=== PATIENT | male | born 1985 | race Caucasian/White ===

== ENCOUNTER 2021-02-24 04:46 | Outpatient (CLI) | payer MEDICAID | END 2021-02-24 04:47 | disposition critical access hospital (66) | LOC: EMS 04:46 | DX: R07.89 Other chest pain (principal); R45.1 Restlessness and agitation | CPT/HCPCS: A0425; A0429; A0999 ==

== ENCOUNTER 2021-02-24 05:13 | Emergency (ER) | payer MEDICAID ==
[2021-02-24] MEDS ORDERED: THIAMINE 100 MG/1 ML 2 ML MDV ONE (05:38)
[2021-02-24] MEDS ORDERED: MAGNESIUM SULFATE 1 GM/2 ML VIAL ONE (05:38)
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
[2021-02-24] MEDS: DEXAMETHASONE 10 MG/ML VIAL IVP STA (05:44)
[2021-02-24] MEDS: KETOROLAC 30 MG/ML VIAL IVP STA (05:46)
[2021-02-24] MEDS: FOLIC ACID INJ 1 MG, THIAMINE INJ 100 MG, MAGNESIUM SULFATE 2 GM, MULTIVITAMIN 10 ML in... IV STA ×5 (05:48)
[2021-02-24 05:50] LABS: BASOPHILS # (AUTO) 0.1 10^3/uL (0.0-0.1); BASOPHILS % (AUTO) 0.8 %; EOSINOPHILS # (AUTO) 0.4 10^3/uL (0.0-0.7); HCT - HEMATOCRIT 42.5 % (42.0-52.0); HGB - HEMOGLOBIN 14.4 g/dL (14.0-18.0); LYMPHOCYTES # (AUTO) 2.6 10^3/uL (1.5-3.5); LYMPHOCYTES % (AUTO) 34.5 %; MEAN CORPUSCULAR HEMOGLOBIN 30.5 pg (27.0-31.0); MEAN CORPUSCULAR HGB CONC 33.9 g/dL (32.0-36.0); MONOCYTES # (AUTO) 0.6 10^3/uL (0.0-1.0); MONOCYTES % (AUTO) 7.2 %; NEUTROPHILS % (AUTO) 52.2 %; PLT - PLATELET COUNT 299 10^3/uL (130-450); RED BLOOD COUNT 4.72 10^6/uL (4.70-6.10); RED CELL DISTRIBUTION WIDTH 12.4 % (12.0-15.0); WHITE BLOOD COUNT 7.6 x10^3/uL (4.8-10.8)
[2021-02-24 06:20] LABS: ALBUMIN 3.8 g/dL (3.2-5.5); ALBUMIN/GLOBULIN RATIO 1.2 (1.0-2.2); BILIRUBIN,TOTAL 0.8 mg/dL (0.2-1.0); CALCIUM 8.2 mg/dL (8.5-10.3); CREATININE 0.9 mg/dL (0.6-1.2); POTASSIUM 3.5 mmol/L (3.5-5.0); TOTAL PROTEIN 7.1 g/dL (6.7-8.2)
[2021-02-24] MEDS: SODIUM CHLORIDE 0.9% 1,000 ML IV STA ×2 (07:51→10:32)
[2021-02-24] MEDS: LORazepam 2 MG/ML VIAL IVP STA ×2 (09:33→15:17)
--- NOTE | 2021-02-24 10:05 | XRAY Report ---
PROCEDURE: Chest 1 View X-Ray INDICATIONS: chest pain TECHNIQUE: One view of the chest was acquired. COMPARISON: None FINDINGS: Surgical changes and devices: None. Lungs and pleura: No pleural effusions or pneumothorax. Lungs are clear. Low lung volumes accentua te pulmonary interstitium and heart size. Minimal right basilar atelectasis. Mediastinum: Mediastinal contours appear normal. Heart size is normal. Bones and chest wall: No suspicious bony lesions. Overlying soft tissues appear unremarkable. IMPRESSION: Right basilar atelectasis accentuated by low lung volumes. No acute cardiopulmonary findings Note: Final report is concordant with preliminary report provided by Thryve Reviewed by: Vincent Quezada MD on 02/24/2021 9:04 AM IAN Approved by: Vincent Quezada MD on 02/24/2021 9:04 AM IAN Station ID: [id number]
[2021-02-24] MEDS: PHENobarbital 65 MG/ML VIAL IV STA (10:34)
[2021-02-24 12:32] LABS: BILIRUBIN,URINE NEGATIVE (NEGATIVE); GLUCOSE, URINE (UA) NEGATIVE (NEGATIVE); KETONES,URINE (UA) NEGATIVE (NEGATIVE); LEUKOCYTE ESTERASE, URINE NEGATIVE (NEGATIVE); NITRITE,URINE NEGATIVE (NEGATIVE); OCCULT BLOOD,URINE NEGATIVE (NEGATIVE); PROTEIN,URINE NEGATIVE (NEGATIVE); UROBILINOGEN,URINE 0.2 (NORMAL) E.U./dL (NORMAL)
[2021-02-24 12:38] LABS: CLARITY,URINE CLEAR (CLEAR)
[2021-02-24] MEDS: ONDANSETRON 4 MG/2 ML VIAL IVP STA (15:17)
[2021-02-24] MEDS: MAG HYDROX/AL HYDROX/SIMETH 30 ML UDC PO STA (15:17)
[2021-02-24] MEDS: MORPHINE 2 MG/ML CARPUJECT IVP STA (15:17)
[2021-02-24 15:18] VITALS: BP 179/116
--- NOTE | 2021-02-24 15:40 | ED Physician Documentation ---
ED Addendum - Addendum Addendum: 02/24/21 15:39 The patient did become more alert and oriented through the morning. He started to actually have some shakiness and nausea which he states consistent with withdrawal from alcohol. He states he been sober for 5 or 6 months. He resumed drinking this past week when he came back to [facility]. He states of been several days of heavy binge drinking. He is concerned about withdrawal. He also 1 point was saying he would be interested in detox. Social work met with him and was looking into detox at [facility]. However the patient then stated he had too much stuff to be doing and preferred not to be going to detox. He was still having some shakiness. I gave repeat doses of medication here in the IV in the ER. I prescribed for him medication to help with withdrawal. He is discharged in stable condition.
[2021-02-24 16:19] LABS: CORONAVIRUS 229E-RESP PCR NOT DETECTED
[2021-02-24 16:20] LABS: B. PARAPERTUSSIS- RESP PCR PAN NOT DETECTED; B. PERTUSSIS- RESP PCR PANEL NOT DETECTED; C. PNEUMONIAE- RESP PCR PANEL NOT DETECTED; CORONAVIRUS HKU1-RESP PCR NOT DETECTED; CORONAVIRUS NL63-RESP PCR NOT DETECTED; CORONAVIRUS OC43-RESP PCR NOT DETECTED; HUMAN METAPNEUMOVIRUS NOT DETECTED; INFLUENZA A- RESP PCR PANEL NOT DETECTED; INFLUENZA B - RESP PCR PANEL NOT DETECTED; M. PNEUMONIAE- RESP PCR PANEL NOT DETECTED; PARAINFLUENZA VIRUS 1 NOT DETECTED; PARAINFLUENZA VIRUS 2 NOT DETECTED; PARAINFLUENZA VIRUS 3 NOT DETECTED; PARAINFLUENZA VIRUS 4 NOT DETECTED; RHINOVIRUS/ENTEROVIRUS NOT DETECTED; RSV- RESP PCR PANEL NOT DETECTED; SARS-CoV-2 -RESP PCR PANEL NOT DETECTED
== END 2021-02-24 16:05 | disposition home or self-care (01) ==
LOC: ED 05:13
DX: M94.0 Chondrocostal junction syndrome [Tietze] (principal); Q67.6 Pectus excavatum; R94.31 Abnormal electrocardiogram [ECG] [EKG]; F10.939 Alcohol use, unspecified with withdrawal, unspecified; Y90.8 Blood alcohol level of 240 mg/100 ml or more; I10 Essential (primary) hypertension; Z20.822 Contact with and (suspected) exposure to COVID-19
CPT/HCPCS: 0202U; 36415; 71045; 80053; 80320; 81003; 83690; 84484; 85025; 93005; 96365; 96366; 96375; 96376; 99284; A9270; J2060; J3411; 81001; 87086

== ENCOUNTER 2021-02-26 06:40 | Emergency (ER) | payer MEDICAID ==
--- NOTE | 2021-02-26 07:22 | ED Physician Documentation ---
PD HPI ABD PAIN - Stated complaint Stated Complaint: CHEST PX - Chief complaint Chief Complaint: General - History obtained from History obtained from: Patient - History of Present Illness Timing - onset: Yesterday (last drink was yesterday and feeling withdrawal of anxious, nausea, seeing things and jittery c/w withdrawal. Having some epigastric to chest pain as well.) Timing - duration: Days (1) Timing - details: Gradual onset, Still present Quality: Cramping, Aching, Pain Location: Epigastric Radiation: Upper back. No: Chest Associated symptoms: Nausea, Vomiting, Near syncope / syncope (feeling lightheaded), Loss of appetite. No: Fever, Hematemesis, Diarrhea, Constipation, Weight loss Similar symptoms before: Has not had sx before Recently seen: Emergency Dept (for alcohol intoxication.) Review of Systems Constitutional: reports: Myalgias. denies: Fever, Chills Nose: denies: Rhinorrhea / runny nose, Congestion Throat: denies: Sore throat Respiratory: reports: Dyspnea. denies: Cough GI: reports: Abdominal Pain, Nausea. denies: Abdominal Swelling, Constipation, Diarrhea : denies: Dysuria, Frequency PD PAST MEDICAL HISTORY - Past Medical History Cardiovascular: Hypertension Endocrine/Autoimmune: None GI: None (has not had pancreatitis nor ulcers in the past. ) Psych: Anxiety - Past Surgical History Past Surgical History: No - Present Medications Home Medications: Ambulatory Orders Medication Instructions Recorded Confirmed Ondansetron Odt [Zofran] 4 mg TL Q6H PRN #10 tablet 02/24/21 PHENobarbitaL [Phenobarbital] 30 mg PO BID 4 Days #8 tablet 02/24/21 Famotidine [Pepcid] 20 mg PO DAILY #20 tablet 02/26/21 HYDROcod/ACETAM 5/325 [[place] 5/325] 1 ea PO Q6H PRN #15 tablet 02/26/21 Ondansetron Odt [Zofran] 4 mg TL Q6H PRN #10 tablet 02/26/21 PHENobarbitaL [Phenobarbital] 30 mg PO BID 4 Days #6 tablet 02/26/21 - Allergies Allergies/Adverse Reactions: Allergies Allergy/AdvReac Type Severity Reaction Status Date / Time No Known Drug Allergies Allergy Verified 02/24/21 05:34 - Social History Does the pt smoke?: No Smoking Status: Never smoker Does the pt drink ETOH?: Yes Does the pt have substance abuse?: No - Immunizations Immunizations are current?: Yes PD ED PE NORMAL - Vitals Vital signs reviewed: Yes - General General: Alert and oriented X 3, No acute distress, Well developed/nourished - HEENT HEENT: PERRL, EOMI, Pharynx benign - Neck Neck: Supple, no meningeal sign, No adenopathy - Cardiac Cardiac: RRR, No murmur - Respiratory Respiratory: Clear bilaterally - Abdomen Abdomen: Soft, Non distended, No organomegaly, Other (tender epigastric and RUQ area. No guarding nor percussion tender. ) - Rectal Rectal: Deferred - Back Back: No CVA TTP - Derm Derm: Normal color, Warm and dry - Extremities Extremities: No tenderness to palpate - Neuro Neuro: Alert and oriented X 3, No motor deficit, Normal speech Results - Vitals Vitals: Oxygen O2 Source Room air - Labs Labs: Laboratory Tests 02/26/21 02/26/21 02/26/21 07:34 07:34 07:34 WBC 10.8 RBC 4.27 L Hgb 13.1 L Hct 38.8 L MCV 90.9 MCH 30.7 MCHC 33.8 RDW 12.7 Plt Count 224 MPV 10.3 Neut # (Auto) 7.8 H Lymph # (Auto) 2.0 [place] # (Auto) 0.9 Eos # (Auto) 0.0 Baso # (Auto) 0.0 Absolute Nucleated RBC 0.00 Nucleated RBC % 0.0 Sodium 138 Potassium 3.1 L Chloride 101 Carbon Dioxide 25 Anion Gap 12.0 BUN 16 Creatinine 0.8 Estimated GFR (MDRD) 111 Glucose 114 H Calcium 8.8 Magnesium 2.0 Total Bilirubin 1.3 H AST 33 ALT 33 Alkaline Phosphatase 70 Troponin I High Sens 3.2 Total Protein 6.9 Albumin 4.1 Globulin 2.8 Albumin/Globulin Ratio 1.5 Lipase 104 H Urine Color Urine Clarity Urine pH Ur Specific [place] Urine Protein Urine Glucose (UA) Urine Ketones Urine Occult Blood Urine Nitrite Urine Bilirubin Urine Urobilinogen Ur Leukocyte Esterase Ur Microscopic Review Urine Culture Comments Ethyl Alcohol < 5.0 02/26/21 11:30 WBC RBC Hgb Hct MCV MCH MCHC RDW Plt Count MPV Neut # (Auto) Lymph # (Auto) [place] # (Auto) Eos # (Auto) Baso # (Auto) Absolute Nucleated RBC Nucleated RBC % Sodium Potassium Chloride Carbon Dioxide Anion Gap BUN Creatinine Estimated GFR (MDRD) Glucose Calcium Magnesium Total Bilirubin AST ALT Alkaline Phosphatase Troponin I High Sens Total Protein Albumin Globulin Albumin/Globulin Ratio Lipase Urine Color STRAW Urine Clarity CLEAR Urine pH 7.0 Ur Specific [place] <=1.005 Urine Protein NEGATIVE Urine Glucose (UA) NEGATIVE Urine Ketones NEGATIVE Urine Occult Blood NEGATIVE Urine Nitrite NEGATIVE Urine Bilirubin NEGATIVE Urine Urobilinogen 0.2 (NORMAL) Ur Leukocyte Esterase NEGATIVE Ur Microscopic Review NOT INDICATED Urine Culture Comments NOT INDICATED Ethyl Alcohol - Rads (name of study) abd/pelvic CT Radiology: Prelim report reviewed, See rad report PD MEDICAL DECISION MAKING - ED course Complexity details: considered differential (mild pancreatitis but pain improved with IV meds and fluids. He is able to take sips of fluids. Having alcohol withdrawal as well, with improved symptoms. Seems stable for going to Detox. ), d/w patient Departure - Departure Disposition: 01 Home, Self Care Clinical Impression: Acute upper abdominal pain Alcohol withdrawal Qualifiers: Complication of substance-induced condition: with perceptual disturbance Qualified Code(s): F10.232 - Alcohol dependence with withdrawal with perceptual disturbance Pancreatitis, alcoholic, acute Qualifiers: Acute pancreatitis complication: unspecified Qualified Code(s): K85.20 - Alcohol induced acute pancreatitis without necrosis or infection Condition: Stable Record reviewed to determine appropriate education?: Yes Instructions: ED Withdrawal Alcohol, ED Pancreatitis Prescriptions: HYDROcod/ACETAM 5/325 [[place] 5/325] 1 ea PO Q6H PRN #15 tablet PRN Reason: Pain Famotidine [Pepcid] 20 mg PO DAILY #20 tablet PHENobarbitaL [Phenobarbital] 30 mg PO BID 4 Days #6 tablet Ondansetron Odt [Zofran] 4 mg TL Q6H PRN #10 tablet PRN Reason: Nausea / Vomiting Comments: Your upper abdominal pain is likely a combination of an irritation of the stomach (gastritis) and some mild inflammation of the pancreas (pancreatitis). These can both be caused by the excess alcohol. Your lipase level which is a marker of pancreatic inflammation is a little bit above the normal range on your blood test. This correlates with some inflammation of the pancreas. This should improve with decreasing irritants such as no alcohol. Also avoid large meals and spicy foods to decrease irritation of the stomach. Famotidine acid reducing medicine daily for the next few weeks. Liquid diet and bland food for the next several days. Tylenol or hydrocodone if needed for pain. For your alcohol withdrawal, take the phenobarbital twice daily for 2 days and then once daily for 2 days. This should help with your withdrawal symptoms. Go to the alcohol detox treatment facility as planned. Discharge Date/Time: 02/26/21 13:19
[2021-02-26 07:48] LABS: BASOPHILS % (AUTO) 0.2 %; EOSINOPHILS % (AUTO) 0.2 %; HCT - HEMATOCRIT 38.8 % (42.0-52.0); HGB - HEMOGLOBIN 13.1 g/dL (14.0-18.0); MEAN CORPUSCULAR HEMOGLOBIN 30.7 pg (27.0-31.0); MEAN CORPUSCULAR HGB CONC 33.8 g/dL (32.0-36.0); MEAN CORPUSCULAR VOLUME 90.9 fL (80.0-94.0); MEAN PLATELET VOLUME 10.3 fL (7.4-11.4); MONOCYTES # (AUTO) 0.9 10^3/uL (0.0-1.0); MONOCYTES % (AUTO) 8.7 %; NEUTROPHILS # (AUTO) 7.8 10^3/uL (1.5-6.6); NEUTROPHILS % (AUTO) 72.4 %; PLT - PLATELET COUNT 224 10^3/uL (130-450); RED BLOOD COUNT 4.27 10^6/uL (4.70-6.10); RED CELL DISTRIBUTION WIDTH 12.7 % (12.0-15.0); WHITE BLOOD COUNT 10.8 x10^3/uL (4.8-10.8)
[2021-02-26] MEDS: DROPERIDOL 5 MG/2 ML VIAL IVP STA (07:48)
[2021-02-26] MEDS: MAG HYDROX/AL HYDROX/SIMETH 30 ML UDC PO STA (07:48)
[2021-02-26] MEDS: FAMOTIDINE 20 MG/2 ML VIAL IVP STA (07:48)
[2021-02-26] MEDS: LORazepam 2 MG/ML VIAL IVP STA (07:48)
[2021-02-26] MEDS: SODIUM CHLORIDE 0.9% 1,000 ML IV STA (07:49)
[2021-02-26 08:03] LABS: ALBUMIN 4.1 g/dL (3.2-5.5); ALBUMIN/GLOBULIN RATIO 1.5 (1.0-2.2); ALKALINE PHOSPHATASE 70 IU/L (42-121); ALT ALANINE AMINOTRANSFERASE 33 IU/L (10-60); AST ASPARTATE AMINOTRANSFERASE 33 IU/L (10-42); BILIRUBIN,TOTAL 1.3 mg/dL (0.2-1.0); BUN - BLOOD UREA NITROGEN 16 mg/dL (6-20); CALCIUM 8.8 mg/dL (8.5-10.3); CARBON DIOXIDE - CO2 25 mmol/L (21-32); CHLORIDE 101 mmol/L (101-111); CREATININE 0.8 mg/dL (0.6-1.2); ETOH - ETHANOL < 5.0 mg/dL; GFR - MDRD 111 (>89); GLUCOSE 114 mg/dL (70-100); LIPASE 104 U/L (22-51); POTASSIUM 3.1 mmol/L (3.5-5.0); SODIUM 138 mmol/L (135-145); TOTAL PROTEIN 6.9 g/dL (6.7-8.2)
[2021-02-26] MEDS: KETOROLAC 15 MG/ML VIAL IVP STA (12:33)
[2021-02-26 12:39] VITALS: BP 162/94
[2021-02-26] MEDS: HYDROmorphone 1 MG/ML CARPUJECT IVP STA (12:40)
[2021-02-26 13:21] LABS: BILIRUBIN,URINE NEGATIVE (NEGATIVE); GLUCOSE, URINE (UA) NEGATIVE (NEGATIVE); KETONES,URINE (UA) NEGATIVE (NEGATIVE); LEUKOCYTE ESTERASE, URINE NEGATIVE (NEGATIVE); NITRITE,URINE NEGATIVE (NEGATIVE); OCCULT BLOOD,URINE NEGATIVE (NEGATIVE); PROTEIN,URINE NEGATIVE (NEGATIVE); UROBILINOGEN,URINE 0.2 (NORMAL) E.U./dL (NORMAL)
[2021-02-26 13:25] LABS: CLARITY,URINE CLEAR (CLEAR)
== END 2021-02-26 13:19 | disposition home or self-care (01) ==
LOC: ED 06:40
DX: K85.20 Alcohol induced acute pancreatitis without necrosis or infection (principal); R10.13 Epigastric pain; R10.11 Right upper quadrant pain; F10.232 Alcohol dependence with withdrawal with perceptual disturbance; R94.31 Abnormal electrocardiogram [ECG] [EKG]; I10 Essential (primary) hypertension
CPT/HCPCS: 36415; 80053; 80320; 81003; 83690; 83735; 84484; 85025; 93005; 96374; 96375; 99284; 99285; A9270; J2060; 81001; 87086